=== PATIENT | male | born 1960 | race Caucasian/White ===

== ENCOUNTER 2019-06-05 13:28 | Outpatient (CLI) | payer OTHER ==
--- NOTE | 2019-06-05 16:18 | SLEEP CARE CONSULTATION ---
Information from patient questionnaire entered by Belle Guo. I have reviewed and concur with the information entered by Belle Guo. This document represents the service I personally performed and the decisions made by me, Toña Yun MD, [facility]. History of Present Illness Reason for Visit: New patient, Previously diagnosed sleep apnea Chief Complaint: reports: Frequent awakenings at night Usual bedtime: 2200 Snores at night: No (not since on machine) Observed to quit breathing while asleep: Yes Number of times waking at night: 3-4 Toss, Turn, or Twitch while sleeping: Yes Recalls having dreams: No Usually gets out of bed at: 0530 Feels refreshed in the morning: No Morning headache: No Sleepy or fatigued during the day: Yes (sometimes) Ever fallen asleep while driving: No Takes day naps: No Dreams during day naps: No Prior sleep studies: Yes Year and Where: 2005 [facility] Additional HPI information: I had the pleasure of seeing Mr. Gonzalez today regarding obstructive sleep apnea-hypopnea. As you know, he is a 59 year old gentleman who was diagnosed with the sleep-disordered breathing at [facility] in [place] in 2005. The AHI was 58 per his collection (the report is not available). He was prescribed a CPAP device set at 10 cmH2O. He uses every night and all night. The compliance data show usage in 180 out of the past 180 nights, averaging 7.8 hours a night. The residual AHI is 0.3 and average time in large leak per day is 10 seconds. He wears the old ResMed Barlow FX nasal pillows. He gets his supplies from [employer]. He finds the treatment very helpful. He complains of his machine being noisy. His uses a CPAP as well. CPAP Compliance Data - Data Reviewed with Patient Average duration of nightly device use: 7h 47m Compliance rate %: 100 Current pressure setting (cmH2O): 10 Humidity settin Subjective Initial [place] Sleepiness Scale score: 3 Past Medical History Past Medical History: reports: Hypertension, Diabetes, Other (lower back pain) Social History The patient's occupation is retired. Patient is and lives in [place]. Have you smoked in the past 12 months: Yes Cigarettes per day (20/pack): 20 Years of smokin Quit date: 2000 Smoking Pack Years: 14.0 Alcohol use: No Caffeine use: Yes Caffeine amount and frequency: 3 diet cokes/day Family History Family history of sleep disordered breathing: Yes Family Hx Sleep Apnea: Sibling: Snoring Allergies and Home Medications Drug allergies reviewed: Yes Home medication list reviewed: Yes Review of Systems Cardiovascular: reports: high blood pressure. denies: palpitations, chest pain, irregular heart rate or pulse, leg or foot swelling, have to sleep sitting up, other Respiratory: denies: shortness of breath, wheeze, sputum production, chronic cough, other Gastrointestinal: denies: heartburn, difficulty swallowing, nausea, vomitting, diarrhea, abdominal pain, other Urinary: denies: incontinence, frequency, urgency, impotence, other Neurological: denies: headaches, seizure, head trauma, disorientation, speech dysfunction, gait or balance problems, fainting or unconsciousness, other Psychiatric: denies: Attention Deficit Hyperactivity, anxiety, depression, mood disorder, claustrophobia, other Ear/Nose/Throat: reports: wisdom teeth removed Endocrine: denies: thyroid disease, history of goiter, sluggishness, too hot or cold, excessive thirst, increased appetite, increased urination, unexplained weakness, other Musculoskeletal: reports: joint pain, neck pain, back pain Immunologic: denies: sneezing, rash, itching, allergies to food or environment, other Physical Exam Vital signs obtained and entered by: Dr. Yun Blood Pressure: 144/99 Cuff size: regular Heart Rate: 93 O2 Saturation: 97 Height: 5 ft 9 in Weight: 248 lb Body Mass Index: 36.6 BMI Classification: Obesity Class 2 Neck circumference: 19 Mood/affect: normal HEENT: No craniofacial malformation Nostrils: patent to airflow Turbinates: normal Septum: midline Mouth and throat: narrow oropharynx Soft palate: long Hard palate: normal Uvula: normal Uvula visualization: 25% Mallampati Class III Tongue: normal in size Tonsils: small Chin and jaw: normal size and position Neck: normal w/o lymphadenopathy or thyromegaly Heart: regular rate and rhythm Lungs: clear bilaterally Abdomen: soft Extremities: no edema or clubbing Neurologic: intact Impression and Plan 1. Obstructive Sleep Apnea-Hypopnea Syndrome, as previously diagnosed. The severity is unknown as we do not have the polysomnography report from 2005. The patient will try to look for the reports. The patient has had good treatment compliance. The current pressure setting appears effective and comfortable. The patient experiences improvement on the treatment. Narrow oropharynx and obesity are common predisposing factors for obstructive sleep apnea-hypopnea syndrome. Pathophysiology of sleep-disordered breathing was discussed. Because the CPAP is now older than the useful life of 5 years, I will order the patient a new one and make it an autoCPAP set between 5 and 10 cmH2O. A new in- laboratory polysomnography will be performed if he cannot find the sleep study report. Plan: 1. Prescription made for an autoCPAP, heated humidifier, and related supplies. 2. Try ResMed N30i mask. 3. Find his old sleep study report. 4. Repeat the study if the report is not available. 5. Try to lose weight. 6. Return for follow up after the one month on the new machine or after his sleep study here. I spent 100% of this 15 minute visit face to face with the patient with greater than 50% of this was spent time counseling the patient and coordination of care.
[2019-06-05 16:19] VITALS: BP 144/99
== END 2019-06-05 13:29 | disposition home or self-care (01) ==
LOC: SC 13:28
PROVIDERS: ATTEND Internal Medicine Pulmonary Disease
DX: G47.33 Obstructive sleep apnea (adult) (pediatric) (principal); E66.9 Obesity, unspecified; Z68.36 Body mass index [BMI] 36.0-36.9, adult
CPT/HCPCS: 99203; 99212

== ENCOUNTER 2020-01-14 13:25 | Emergency (ER) | payer OTHER ==
[2020-01-14 13:35] VITALS: BP 151/82
[2020-01-14] MEDS ORDERED: BUFFERED LIDOCAINE 10 ML SYRINGE SUBQ STA (13:59)
--- NOTE | 2020-01-14 14:00 | ED Physician Documentation ---
PD HPI UPPER EXT INJURY - Stated complaint Stated Complaint: R HAND INJ - Chief complaint Chief Complaint: Ext Problem - History obtained from History obtained from: Patient (Off a ladder wrong and bent his right second finger somehow where he has mild pain but there is also deformity. No other injuries.) Review of Systems Musculoskeletal: reports: Joint pain. denies: Extremity swelling, Pain with weight bearing Neurologic: denies: Headache, Head injury, LOC PD PAST MEDICAL HISTORY - Past Medical History Past Medical History: Yes Cardiovascular: High cholesterol, Hypertension Endocrine/Autoimmune: Type 2 diabetes - Past Surgical History Past Surgical History: Yes - Present Medications Home Medications: Ambulatory Orders Medication Instructions Recorded Confirmed Losartan [Cozaar] 05/05/14 07/10/15 Metformin HCl [Glucophage Xr] 05/05/14 07/10/15 Simvastatin 05/05/14 07/10/15 hydroCHLOROthiazide 05/05/14 07/10/15 [Hydrochlorothiazide] Ibuprofen 600 mg PO TID #20 tablet 07/10/15 Oxycodone HCl/Acetaminophen 1 each PO Q6H PRN #20 tablet 07/10/15 [Percocet 5-325 mg Tablet] Promethazine [Phenergan] 25 - 50 mg PO Q6H PRN #30 tab 07/10/15 - Allergies Allergies/Adverse Reactions: Allergies Allergy/AdvReac Type Severity Reaction Status Date / Time No Known Drug Allergies Allergy Verified 01/14/20 13:31 - Social History Does the pt smoke?: No Smoking Status: Never smoker Does the pt drink ETOH?: Yes Does the pt have substance abuse?: No PD ED PE NORMAL - Vitals Vital signs reviewed: Yes - General General: Alert and oriented X 3, No acute distress - Extremities Extremities: Other (There is a deformity at the DIP of the second right finger which could be a fracture or dislocation. Mild dorsal deformity. He cannot bend at the DIP. Normal neurovascular function at the tip.) - Neuro Neuro: Alert and oriented X 3, Normal speech Results - Vitals Vitals: Vital Signs - 24 hr 01/14/20 13:31 Temperature 36.5 C Heart Rate 108 H Respiratory 16 Rate Blood Pressure 151/82 H O2 Saturation 96 Oxygen O2 Source Room air - Rads (name of study) R finger Radiology: EMP read contemporaneously (dorsal dislocation at DIP) Procedures - Splint (location) R finger Splint applied by: Physician Type of splint: Metal foam finger splint - Reduction Body part reduced: Right, Finger Fracture or dislocation: Dislocation Anesthesia: Digital block (2ml buffered lido) Reduction aftercare: Alignment improved, Splint applied PD MEDICAL DECISION MAKING - ED course ED course: 59-year-old gentleman was coming down off a ladder wrong and injured his right second finger. X-ray interpreted contemporaneously by me shows a dorsal dislocation, I had not noted the little volar plate fracture while he was here, but I discussed this with him by phone after discharge. The dislocation was reduced and he was splinted. Departure - Departure Disposition: 01 Home, Self Care Clinical Impression: Dislocation, finger Qualifiers: Encounter type: initial encounter Qualified Code(s): S63.259A - Unspecified dislocation of unspecified finger, initial encounter Condition: Good Record reviewed to determine appropriate education?: Yes Instructions: ED Dislocation Finger Redu Comments: Keep the splint on and dry, you can remove it briefly for washing, but try to keep it on for at least a couple of weeks. Return for new or worsening symptoms. Discharge Date/Time: 01/14/20 14:49
--- NOTE | 2020-01-14 14:49 | XRAY Report ---
Reason: fall from ladder index finger pain/swelling Procedure Date: 01/14/2020 Accession Number: [id number] / [id number] Procedure: XR - Finger(s) RT CPT Code: Final Report FULL RESULT: EXAM: RIGHT SECOND DIGIT RADIOGRAPHY EXAM DATE: 01/14/2020 02:14 PM. CLINICAL HISTORY: Finger pain post fall. COMPARISON: None. TECHNIQUE: 3 views. FINDINGS: Bones: There is a fracture seen at the base of the middle phalanx at its volar aspect. Joints: There is dorsal dislocation of the distal phalanx at the DIP joint. Soft Tissues: Mild soft tissue swelling noted about the digit. IMPRESSION: 1. Fracture seen at the base of the middle phalanx at its volar aspect. 2. Dorsal dislocation of the distal phalanx at the DIP joint, with mild soft tissue swelling. [facility]
== END 2020-01-14 14:49 | disposition home or self-care (01) ==
LOC: ED 13:25
DX: S62.620A Displaced fracture of middle phalanx of right index finger, initial encounter for closed fracture (principal); S63.290A Dislocation of distal interphalangeal joint of right index finger, initial encounter; W11.XXXA Fall on and from ladder, initial encounter; I10 Essential (primary) hypertension; E11.9 Type 2 diabetes mellitus without complications; Z79.84 Long term (current) use of oral hypoglycemic drugs
CPT/HCPCS: 73140